=== PATIENT | female | born 1970 | race Asian ===

== ENCOUNTER → 2018-03-18 | Outpatient (CLI) | payer OTHER ==
[~2018-03-18] MED LIST: AMLO10TA8 PO; BENA20TA4 PO; FERR324T5 PO; HYDR25TA6 PO
[2018-03-18 15:17] LABS: CALCIUM 8.6 mg/dL (8.5-10.1); CHLORIDE 111 mmol/L (98-107)
[2018-03-18 15:23] LABS: ALANINE AMINOTRANSFERASE 23 U/L (12-78); ALBUMIN 3.6 g/dL (3.4-5.0); ALKALINE PHOSPHATASE 74 U/L (45-117); ANION GAP 6 mmol/L (5-15); BILIRUBIN,TOTAL 0.3 mg/dL (0.2-1.0); CREATININE 0.82 mg/dL (0.55-1.02); TOTAL PROTEIN 7.6 g/dL (6.4-8.2)
== END | disposition home or self-care (01) ==
LOC: STAR 14:07
PROVIDERS: ATTEND Obstetrics & Gynecology
DX: N93.9 Abnormal uterine and vaginal bleeding, unspecified (principal)
CPT/HCPCS: 36415; 80053

== ENCOUNTER 2018-03-24 08:05 | Observation (INO) | payer OTHER ==
[~2018-03-24] VITALS: Ht 154.9 cm; Wt 68.4 kg
[~2018-03-24 08:05] MED LIST changes: -BENA20TA4 PO; +BENA20TA54 PO
[2018-03-24] MEDS ORDERED: ONDANSETRON ODT 8 MG PO ONE (08:30)
[2018-03-24] MEDS ORDERED: ACETAMINOPHEN 500 MG TABLET PO ONE (08:30)
[2018-03-24 08:33] VITALS: BP 158/100
[2018-03-24] MEDS: LACTATED RINGERS 1,000 ML IV SCH ×3 (08:49→22:31)
[2018-03-24 08:55] LABS: HCG UR SG 1.015 (1.003-1.030)
[2018-03-24] MEDS ORDERED: FENTANYL PF 100 MCG/2ML ONE ×2 (09:58→12:18)
[2018-03-24] MEDS ORDERED: MIDAZOLAM 1 MG/ML, 2ML ONE ×2 (09:59→13:10)
[2018-03-24] MEDS ORDERED: SILVER NITRATE STICK TP ONE (11:08)
[2018-03-24] MEDS ORDERED: BUPIVACAINE/PF 0.25% ONE (11:08)
[2018-03-24] MEDS ORDERED: EPINEPHRINE 1 MG/ML, 1ML ONE (11:08)
[2018-03-24] MEDS ORDERED: PROPOFOL 10 MG/ML, 20ML ONE (11:16)
[2018-03-24] MEDS ORDERED: DEXAMETHASONE 4 MG/ML, 5ML ONE (11:16)
[2018-03-24] MEDS ORDERED: KETOROLAC 30 MG/1 ML ONE (11:16)
[2018-03-24] MEDS ORDERED: CEFAZOLIN 1,000 MG ONE (11:16)
[2018-03-24] MEDS ORDERED: PROMETHAZINE 25 MG/ML, 1ML IV PRN (12:00)
[2018-03-24] MEDS ORDERED: ALBUTEROL/IPRATROPIUM 2.5MG/0.5MG, 3 ML NPPB PRN (12:00)
[2018-03-24] MEDS ORDERED: MEPERIDINE/PF 25MG/0.5ML IVPush PRN (12:00)
[2018-03-24] MEDS ORDERED: METOPROLOL 1 MG/ML, 5ML IV PRN (12:00)
[2018-03-24] MEDS ORDERED: MIDAZOLAM 1 MG/ML, 2ML IV PRN (12:00)
[2018-03-24] MEDS ORDERED: hydrALAzine 20 MG/ML, 1ML IV PRN (12:00)
[2018-03-24] MEDS ORDERED: SCOPOLAMINE PATCH, 1.5MG PATCH.TD72 TD PRN (12:00)
[2018-03-24] MEDS ORDERED: ONDANSETRON 2MG/ML, 2ML IV PRN (12:00)
[2018-03-24] MEDS ORDERED: OXYcodone 5 MG/5 ML ORAL.SOL UDC ONE (12:19)
[2018-03-24] MEDS: OXYcodone 5 MG/5 ML ORAL.SOL UDC PO PRN ×2 (12:23→17:24)
[2018-03-24] MEDS: FENTANYL PF 100 MCG/2ML IV PRN ×2 (12:23→12:38)
[2018-03-24] MEDS ORDERED: HYDROmorphone 2 MG/ML, 1ML ONE (12:55)
[2018-03-24] MEDS: HYDROmorphone 2 MG/ML, 1ML IVPush PRN ×4 (12:57→13:26)
[2018-03-24] MEDS ORDERED: MEPERIDINE/PF 25MG/ML,1ML ONE (13:09)
[2018-03-24] MEDS ORDERED: PROMETHAZINE 12.5 MG SUPP PR ONE (18:23)
[2018-03-24] MEDS ORDERED: PROMETHAZINE 12.5 MG SUPP PR PRN (18:30)
[2018-03-24] MEDS ORDERED: ONDANSETRON 2MG/ML, 2ML IVPush PRN (19:00)
[2018-03-24] MEDS ORDERED: IBUPROFEN 600 MG TABLET PO PRN (19:00)
[2018-03-24 19:55] VITALS: BP 133/80
[2018-03-24] MEDS ORDERED: AMLODIPINE 5 MG TABLET PO SCH (19:57)
[2018-03-24] MEDS ORDERED: BENAZEPRIL 20 MG TABLET PO SCH (19:57)
[2018-03-24] MEDS: OXYcodone/APAP 5/325MG TABLET PO PRN (21:54)
[2018-03-25 00:18] VITALS: BP 122/66
[2018-03-25 03:53] VITALS: BP 120/56
[2018-03-25] MEDS: OXYcodone/APAP 5/325MG TABLET PO PRN (08:20)
[2018-03-25] MEDS ORDERED: ONDA4TAB7 PO (08:43)
[2018-03-25] MEDS ORDERED: OXYC-302 PO (08:44)
[2018-03-25] MEDS ORDERED: IBUP-1222 PO (08:45)
[2018-03-25 10:10] VITALS: BP 123/74
== END 2018-03-25 11:03 | disposition home or self-care (01) ==
LOC: OUT 08:05 → ORIP 18:17 → 4NOR 19:10 → DCLOUNGE 03-25 10:41
PROVIDERS: ADMIT Obstetrics & Gynecology; ATTEND Obstetrics & Gynecology
DX: N93.9 Abnormal uterine and vaginal bleeding, unspecified (principal)
CPT/HCPCS: 58563; 81025; 96374; G0378; J0171; J0690; J1100; J1170; J1885; J2250; J2405; J2704; J3010; J3490; J7120; Q0162

== ENCOUNTER → 2020-08-20 | Outpatient (CLI) | payer OTHER ==
[~2020-08-20] MED LIST changes: +ALPR0.254 PO; +AMLO-211 PO; -AMLO10TA8 PO; +DOCU-131 PO; +IBUP-1222 PO; +ONDA4TAB13 SL; +ONDA4TAB7 PO; +OXYC1TAB14 PO; +ZOLP10TA5 PO
== END | disposition home or self-care (01) ==
LOC: RAD 14:01
PROVIDERS: ATTEND Nurse Practitioner Family
DX: R06.00 Dyspnea, unspecified (principal)
CPT/HCPCS: 71045